=== PATIENT | male | born 1975 ===

== ENCOUNTER → 2020-04-22 | Outpatient (CLI) | payer OTHER | LOC: MHCPAIN 12:12 | DX: M47.817 Spondylosis without myelopathy or radiculopathy, lumbosacral region (principal); M53.3 Sacrococcygeal disorders, not elsewhere classified; M54.5 Low back pain; G89.29 Other chronic pain | CPT/HCPCS: G0463 ==

== ENCOUNTER → 2020-04-27 | Outpatient (CLI) | payer OTHER | LOC: MHCPAIN 13:26 | DX: M47.817 Spondylosis without myelopathy or radiculopathy, lumbosacral region (principal); M54.5 Low back pain ==

== ENCOUNTER → 2020-05-18 | Outpatient (CLI) | payer OTHER | LOC: MHCPAIN 10:20 | DX: M47.817 Spondylosis without myelopathy or radiculopathy, lumbosacral region (principal); M54.5 Low back pain | CPT/HCPCS: G0463 ==

== ENCOUNTER → 2020-06-08 | Outpatient (CLI) | payer OTHER | LOC: MHCPAIN 11:39 | DX: M47.817 Spondylosis without myelopathy or radiculopathy, lumbosacral region (principal); M54.5 Low back pain; M53.3 Sacrococcygeal disorders, not elsewhere classified | CPT/HCPCS: G0463; J1100; J2250; J3010 ==

== ENCOUNTER → 2020-06-11 | Outpatient (CLI) | payer OTHER | LOC: MHCPAIN 09:40 | DX: M47.817 Spondylosis without myelopathy or radiculopathy, lumbosacral region (principal); M54.5 Low back pain; M53.3 Sacrococcygeal disorders, not elsewhere classified | CPT/HCPCS: J1100; J2250; J3010 ==